=== PATIENT | female | born 1970 | race Caucasian/White ===

== ENCOUNTER 2018-03-15 18:54 | Emergency (ER) | payer OTHER ==
[2018-03-15 19:28] VITALS: BP 143/63
--- NOTE | 2018-03-15 21:06 | UC ---
Dino De La Cruz Gabriel, scribed for Adam Cruz MD on 03/15/18 at 1946 . Respiratory Complaint HPI - HPI Summary HPI Summary: This patient is a 47 year old F presenting to [facility] [place] accompanied by her son with a chief complaint of a cough since 03-12-18. The patient rates the pain 9/10 in severity. Patient reports sore throat, chest pain, dry cough, SOB, harsh voice, ALVAREZ, and chills. Patient denies fever. She took Augmentin and prednisone for a similar issue earlier this month. Hx COPD, asthma, and alpha one. - History of Current Complaint Chief Complaint: UCRespiratory Stated Complaint: COUGH,DIFFICULTY BREATHING Time Seen by Provider: 03/15/18 19:29 Hx Obtained From: Patient Hx Last Menstrual Period: 2 mos Onset/Duration: Lasting Days, Still Present Timing: Constant Severity Initially: Moderate Severity Currently: Moderate Pain Intensity: 9 Pain Scale Used: 0-10 Numeric Character: Cough: Nonproductive Associated Signs And Symptoms: Negative: Fever - Allergies/Home Medications Allergies/Adverse Reactions: Allergies Allergy/AdvReac Type Severity Reaction Status Date / Time codeine Allergy Nausea And Verified 03/15/18 19:29 Vomiting PMH/Surg Hx/FS Hx/Imm Hx Respiratory History: COPD, Asthma GI/ History: Ulcer Psychological History: Anxiety, Depression - Surgical History Surgical History: Yes Surgery Procedure, Year, and Place: CHOLECYSTECTOMY -2007-[facility]. MULTI- EXPLORATORY SURGERY. LEFT knee x 2. 3 INFUSAPOR[facility] PLACED. t & a; appy at 2 mos old. TUBAL LIGATION. wisdom teeth. APPENDECTOMY-3 MONTHS OLD- FROM HEMORRHAGE. NOSE DEVIATED SEPTUM - Family History Known Family History: Positive: Hypertension Negative: Respiratory Disease, Seizure Disorder - Social History Lives: With Family Alcohol Use: None Substance Use Type: None Smoking Status (MU): Former Smoker Type: Cigarettes Amount Used/How Often: 1 PPD X 21 YEARS When Did the Patient Quit Smoking/Using Tobacco: 2005 - Immunization History Most Recent Influenza Vaccination: fall 2013 Review of Systems Constitutional: Chills ENT: Sore Throat, Other - harsh voice Respiratory: Shortness Of Breath, Cough Cardiovascular: Chest Pain Neurological: Headache All Other Systems Reviewed And Are Negative: Yes Physical Exam - Summary Physical Exam Summary: General: well-appearing, no pain distress Skin: warm, color reflects adequate perfusion, dry Head: normal Eyes: EOMI, JUSTINE ENT: hoarse voice, posterior pharynx is erythematous Neck: supple, nontender Respiratory: mildly decreaed air movement in lungs Cardiovascular: RRR Abdomen: soft, nontender Bowel: present Musculoskeletal: normal, strength/ROM intact Neurological: normal, sensory/motor intact, A&O x3 Psychological: affect/mood appropriate Triage Information Reviewed: Yes Vital Signs: Initial Vital Signs Temp 99.0 F 03/15/18 19:25 Pulse 91 03/15/18 19:25 Resp 18 03/15/18 19:25 BP 143/63 03/15/18 19:25 Pulse Ox 99 03/15/18 19:25 Vital Signs Reviewed: Yes UC Diagnostic Evaluation - Laboratory O2 Sat by Pulse Oximetry: 99 Respiratory Course/Dx - Course Course Of Treatment: Medications reviewed. Allergies noted. BP noted and advised to follow up with PCP. - Differential Dx/Diagnosis Provider Diagnoses: LARYNGITIS. HTN Discharge - Sign-Out/Discharge Documenting (check all that apply): Discharge/Admit/Transfer - Discharge Plan Condition: Stable Disposition: HOME Prescriptions: Azithromycin TAB* [Zithromax TAB (Z-DOMI) 250 mg #6 tabs] 2 tab PO .TODAY, THEN 1 DAILY #1 domi predniSONE TAB* [Deltasone TAB*] 40 mg PO DAILY #10 tab Patient Education Materials: Laryngitis (ED) [place]errals: [facility] [place] [facility] [place] [facility] [Outside] Additional Instructions: FOLLOW UP WITH YOUR DOCTOR. GET RECHECKED FOR ANY WORSENING OF YOUR CONDITION OR QUESTIONS OR CONCERNS. YOUR BLOOD PRESSURE WAS ELEVATED TODAY; FOLLOW UP WITH YOUR PRIMARY CARE DOCTOR WITHIN ONE WEEK. - Billing Disposition and Condition Condition: STABLE Disposition: HOME The documentation as recorded by the Dino vargas Gabriel accurately reflects the service I personally performed and the decisions made by me, Adam Cruz MD.
== END 2018-03-15 20:10 | disposition home or self-care (01) ==
LOC: UCEAST 18:54
DX: J04.0 Acute laryngitis (principal); I10 Essential (primary) hypertension; Z87.891 Personal history of nicotine dependence; Z88.5 Allergy status to narcotic agent
CPT/HCPCS: 99212; G0463